=== PATIENT | female | born 1995 | race African-American/Black ===

== ENCOUNTER → 2023-04-19 | Outpatient (CLI) | payer OTHER ==
[2023-04-19 14:42] LABS: BASO % 0.3 % (0.0-1.0); EOS # 0.1 10*3/uL (0.0-0.4); EOS % 0.6 % (1.0-4.0); HEMATOCRIT 36.3 % (37.0-47.0); LYMPH # 2.3 10*3/uL (1.3-4.4); LYMPH % 24.7 % (27.0-41.0); MEAN CELL VOLUME 95.8 fl (81.0-99.0); MEAN CORPUSCULAR HGB 32.7 pg (27.0-31.0); MEAN CORPUSCULAR HGB CONC 34.2 g/dl (33.0-37.0); MEAN PLATELET VOLUME 8.4 fl (9.6-12.3); MONO # 0.6 10*3/uL (0.1-1.0); MONO % 6.5 % (3.0-9.0); NEUT # 6.3 10*3/uL (2.3-7.9); NEUT % 67.7 % (47.0-73.0); PLATELET COUNT AUTOMATED 335 10*3/uL (130-400); RED BLOOD COUNT 3.79 10*6/uL (4.10-5.10); RED CELL DISTRI WIDTH 13.5 % (0-14.5); WHITE BLOOD COUNT 9.3 10*3/uL (4.8-10.8)
[2023-04-19 15:11] LABS: ALKALINE PHOSPHATASE 54 U/L (46-116); BUN 14 mg/dl (9-23); CHLORIDE 105 mmol/L (98-107); CHOLESTEROL 126 mg/dL (<200); LDL CHOLESTEROL 51 mg/dL (9-159); POTASSIUM 3.9 mmol/L (3.4-5.1); SGPT/ALT 78 U/L (10-49); TOTAL PROTEIN 7.1 gm/dL (6.0-8.0); TRIGLYCERIDES 111 mg/dl (<150)
[2023-04-20 09:07] LABS: HBSAG Negative (Negative); HEP B CORE AB, IGM Negative (Negative); HEPATITIS C ANTIBODY Non Reactive (Non Reactive)
[2023-04-20 17:06] LABS: HEPATITIS C QNT HCV Not Detected IU/mL (.)
== END | disposition home or self-care (01) ==
LOC: LAB 13:58
PROVIDERS: ATTEND Registered Nurse
DX: Z51.81 Encounter for therapeutic drug level monitoring (principal); F11.10 Opioid abuse, uncomplicated